=== PATIENT | female | born 1995 | race Caucasian/White ===

== ENCOUNTER 2021-10-17 18:31 | Emergency (ER) | payer BC ==
[~2021-10-17] VITALS: Ht 170.2 cm; Wt 70.3 kg
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
[2021-10-17] MEDS ORDERED: IBUPROFEN 600 MG TABLET ONE (19:23)
[2021-10-17] MEDS ORDERED: IBUPROFEN 600 MG TABLET PO ONE (19:30)
--- NOTE | 2021-10-17 19:30 | NUR ---
PT REUTRNED TO ER BED 10 VIA W/C
--- NOTE | 2021-10-17 20:46 | NUR ---
Patient discharged to home in stable condition. Written and verbal after care instructions given. Patient verbalizes understanding of instruction. Pt ambulatory with a steady gait
[2021-10-17 20:55] VITALS: BP 123/78
== END 2021-10-17 20:55 | disposition home or self-care (01) ==
LOC: ER 18:52
DX: S60.511A Abrasion of right hand, initial encounter (principal); M54.6 Pain in thoracic spine; M25.532 Pain in left wrist; J45.909 Unspecified asthma, uncomplicated; Z88.0 Allergy status to penicillin; V43.52XA Car driver injured in collision with other type car in traffic accident, initial encounter; Y93.89 Activity, other specified; Y92.89 Other specified places as the place of occurrence of the external cause; Y99.8 Other external cause status
CPT/HCPCS: 72074-TC; 73110